=== PATIENT | male | born 1965 | race African-American/Black ===

== ENCOUNTER 2022-05-31 16:10 | Inpatient (IN) | payer OTHER ==
[2022-05-31 16:47] VITALS: BMI 20.3
[2022-05-31] MEDS ORDERED: POLYETHYLENE GLYCOL (HEALTHYLAX) 3350 17 GM PACKET PO PRN (17:13)
[2022-05-31] MEDS ORDERED: NALOXONE HCL (KLOXXADO) 8 MG SPRAY NS PRN (17:13)
[2022-05-31] MEDS ORDERED: DICYCLOMINE HCL 10 MG CAPSULE PO PRN (17:13)
[2022-05-31] MEDS ORDERED: MAGNESIUM HYDROX 2400MG/30ML ORAL SUSPENSION 30 ML CUP PO PRN (17:13)
[2022-05-31] MEDS ORDERED: BENZOCAINE/MENTHOL (CHLORASEPTIC ) LOZENGE MM PRN (17:13)
[2022-05-31] MEDS ORDERED: BISMUTH SUBSALICYLATE 524 MG/30 ML PO PRN (17:13)
[2022-05-31] MEDS ORDERED: NALOXONE HCL 0.4 MG/ML VIAL IM PRN (17:13)
[2022-05-31] MEDS ORDERED: guaiFENesin 200 MG/10 ML 10 ML UNIT-DOSE CUPS PO PRN (17:13)
[2022-05-31] MEDS ORDERED: LOPERAMIDE HCL 2 MG CAPSULE PO PRN (17:13)
[2022-05-31] MEDS ORDERED: P-EPHED 60MG/TRIPROLIDI 2.5MG TABLET PO PRN (17:13)
[2022-05-31] MEDS ORDERED: MELATONIN 5 MG TABLETS PO PRN (17:13)
[2022-05-31] MEDS ORDERED: NICOTINE POLACRILEX 2 MG GUM BUC PRN (17:13)
[2022-05-31] MEDS ORDERED: ACETAMINOPHEN 325 MG TABLET (FP) PO PRN ×2 (17:13)
[2022-05-31] MEDS ORDERED: metFORMIN HCL 500 MG TABLET (FP) PO ONE (19:23)
[2022-05-31] MEDS: MAG HYDROX/AL HYDROX/SIMETH 30 ML UNIT-DOSE CUP PO PRN (20:55)
[2022-05-31] MEDS ORDERED: EZETIMIBE PO SCH (22:00)
[2022-05-31] MEDS ORDERED: ROSUVASTATIN PO SCH (22:00)
[2022-05-31] MEDS: THIAMINE HCL 100 MG TABLET (FP) PO SCH (22:28)
[2022-05-31] MEDS: APIXABAN 5 MG TABLET PO SCH (22:28)
[2022-05-31] MEDS: hydrOXYzine PAMOATE 25 MG CAPSULE (FP) PO PRN (22:28)
[2022-05-31] MEDS: EZETIMIBE 10 MG TABLET (FP) PO SCH (22:28)
[2022-05-31] MEDS: METHOCARBAMOL 500 MG TABLET PO PRN (22:28)
[2022-05-31] MEDS: cloNIDine HCL 0.1 MG TABLET PO PRN (22:28)
[2022-05-31] MEDS: ROSUVASTATIN CA 20 MG TABLET PO SCH (22:28)
[2022-05-31] MEDS: LATANOPROST 0.005% OPHTH SOLN 2.5ML BOTTLE OU SCH (22:29)
[2022-06-01] MEDS: cloNIDine HCL 0.1 MG TABLET PO PRN (06:03)
[2022-06-01] MEDS: metFORMIN HCL 500 MG TABLET (FP) PO SCH (06:05)
[2022-06-01] MEDS ORDERED: ALBUTEROL SO4 HFA INHALER IH PRN (09:26)
[2022-06-01] MEDS ORDERED: methaDONE HCL 10 MG TABLET (FOR DETOX USE ONLY) PO ONE (09:45)
[2022-06-01] MEDS ORDERED: NICOTINE 10 MG CARTRIDGE (INHALER) IH PRN (09:51)
[2022-06-01] MEDS ORDERED: NICOTINE POLACRILEX 2 MG GUM BUC PRN (09:51)
[2022-06-01] MEDS ORDERED: NICOTINE 14 MG/24 HOURS TOPICAL PATCH TD PRN (09:52)
[2022-06-01] MEDS ORDERED: amLODIPine BESYLATE 5 MG TABLET (FP) PO SCH (10:00)
[2022-06-01] MEDS: APIXABAN 5 MG TABLET PO SCH ×2 (10:06→22:20)
[2022-06-01] MEDS: PRENATAL VITAMINS W/ FOLIC ACID TABLET (FP) PO SCH (10:06)
[2022-06-01 11:56] LABS: HEMATOCRIT 39.2 % (35.4-49); HEMOGLOBIN 12.8 GM/dL (11.7-16.9); MCH 30.9 pg (25.7-33.7); MCHC 32.6 g/dl (32.0-35.9); MEAN CELL VOLUME 94.7 fl (80-96); MEAN PLT VOLUME 8.1 fl (7.5-11.1); PLATELET COUNT 300 10^3/uL (134-434); RBC 4.14 M/mm3 (4.00-5.60); RDW 15.8 % (11.9-15.9); WHITE BLOOD COUNT 6.4 K/mm3 (4.0-10.0)
[2022-06-01 12:06] LABS: ALBUMIN 3.2 g/dl (3.4-5.0); CALCIUM 8.8 mg/dL (8.5-10.1)
[2022-06-01 12:11] LABS: CREATININE 0.8 mg/dL (0.55-1.3)
[2022-06-01 12:12] LABS: BILIRUBIN,TOTAL 0.3 mg/dL (0.2-1); TOT PROT 7.2 g/dl (6.4-8.2)
[2022-06-01] MEDS: diazePAM 5 MG TABLET PO PRN ×2 (17:17→22:23)
[2022-06-01] MEDS: METHOCARBAMOL 500 MG TABLET PO PRN (17:17)
[2022-06-01] MEDS: MAG HYDROX/AL HYDROX/SIMETH 30 ML UNIT-DOSE CUP PO PRN (17:57)
[2022-06-01] MEDS: THIAMINE HCL 100 MG TABLET (FP) PO SCH (22:20)
[2022-06-01] MEDS: ROSUVASTATIN CA 20 MG TABLET PO SCH (22:20)
[2022-06-01] MEDS: EZETIMIBE 10 MG TABLET (FP) PO SCH (22:20)
[2022-06-01] MEDS: LATANOPROST 0.005% OPHTH SOLN 2.5ML BOTTLE OU SCH (22:21)
[2022-06-01] MEDS: QUEtiapine FUMARATE 50 MG TABLET PO PRN (22:21)
[2022-06-02] MEDS: cloNIDine HCL 0.1 MG TABLET PO PRN ×2 (05:47→15:37)
[2022-06-02] MEDS: hydrOXYzine PAMOATE 25 MG CAPSULE (FP) PO PRN ×2 (05:47→15:36)
[2022-06-02] MEDS: METHOCARBAMOL 500 MG TABLET PO PRN ×3 (05:47→22:41)
[2022-06-02] MEDS: metFORMIN HCL 500 MG TABLET (FP) PO SCH (06:46)
[2022-06-02] MEDS: APIXABAN 5 MG TABLET PO SCH ×2 (09:30→22:41)
[2022-06-02] MEDS: amLODIPine BESYLATE 2.5 MG TABLET (FP) PO SCH (09:30)
[2022-06-02] MEDS: PRENATAL VITAMINS W/ FOLIC ACID TABLET (FP) PO SCH (09:30)
[2022-06-02] MEDS: ONDANSETRON *ODT* 4 MG TABLET SL PRN (12:38)
[2022-06-02] MEDS ORDERED: diazePAM 5 MG TABLET PO PRN (18:36)
[2022-06-02] MEDS: EZETIMIBE 10 MG TABLET (FP) PO SCH (22:41)
[2022-06-02] MEDS: ROSUVASTATIN CA 20 MG TABLET PO SCH (22:41)
[2022-06-02] MEDS: QUEtiapine FUMARATE 50 MG TABLET PO PRN (22:41)
[2022-06-02] MEDS: THIAMINE HCL 100 MG TABLET (FP) PO SCH (22:41)
[2022-06-02] MEDS: LATANOPROST 0.005% OPHTH SOLN 2.5ML BOTTLE OU SCH (22:48)
[2022-06-03] MEDS: ONDANSETRON *ODT* 4 MG TABLET SL PRN (03:29)
[2022-06-03] MEDS: metFORMIN HCL 500 MG TABLET (FP) PO SCH (06:25)
[2022-06-03] MEDS: hydrOXYzine PAMOATE 25 MG CAPSULE (FP) PO PRN (09:22)
[2022-06-03] MEDS: PRENATAL VITAMINS W/ FOLIC ACID TABLET (FP) PO SCH (09:22)
[2022-06-03] MEDS: APIXABAN 5 MG TABLET PO SCH (09:22)
[2022-06-03] MEDS: amLODIPine BESYLATE 2.5 MG TABLET (FP) PO SCH (09:25)
[2022-06-03 09:42] VITALS: BP 124/60; PULSE 62; RESP 17; TEMP 98.6
[2022-06-03] MEDS ORDERED: methaDONE HCL 10 MG TABLET (FOR DETOX USE ONLY) PO ONE (10:00)
[2022-06-03] MEDS ORDERED: TRIMETHOBENZAMIDE HCL 200MG/2ML INJ IM PRN (12:09)
[2022-06-05] MEDS ORDERED: methaDONE HCL 10 MG TABLET (FOR DETOX USE ONLY) PO ONE (10:00)
== END 2022-06-03 14:53 | disposition left against medical advice (07) | DRG 770 ==
LOC: YASAS 16:10 → Y6N 17:47
PROVIDERS: ADMIT Allergy & Immunology; ATTEND Family Medicine
PROC: HZ2ZZZZ Detoxification Services for Substance Abuse Treatment (ICD-10-PCS; principal; 2022-05-31)
DX: F11.23 Opioid dependence with withdrawal (principal); F10.230 Alcohol dependence with withdrawal, uncomplicated; F12.20 Cannabis dependence, uncomplicated; F17.210 Nicotine dependence, cigarettes, uncomplicated; F25.9 Schizoaffective disorder, unspecified; F19.282 Other psychoactive substance dependence with psychoactive substance-induced sleep disorder; F19.280 Other psychoactive substance dependence with psychoactive substance-induced anxiety disorder; F19.24 Other psychoactive substance dependence with psychoactive substance-induced mood disorder; E78.5 Hyperlipidemia, unspecified; E11.9 Type 2 diabetes mellitus without complications; Z79.84 Long term (current) use of oral hypoglycemic drugs; J45.20 Mild intermittent asthma, uncomplicated; I82.501 Chronic embolism and thrombosis of unspecified deep veins of right lower extremity; Z79.01 Long term (current) use of anticoagulants
CPT/HCPCS: 36415; 80053; 82962; 85027; 86780; 93005; 93010; C9803-CS; Q0162; U0003; U0005